=== PATIENT | female | born 1935 ===

== ENCOUNTER 2018-03-26 13:47 | Emergency (ER) | payer MEDICARE, MEDICAID ==
[2018-03-26 15:34] VITALS: BP 126/60
--- NOTE | 2018-03-26 15:56 | ED ---
GI/ HPI - HPI Summary HPI Summary: 82 yr old female with the complaint of dysuria, frequency, suprapubic discomfort. Onset of symptoms several days ago. She has UTI frequently. She denies fever, chills, vomiting, nausea. She didn't get a chance to eat much today, and she is a diabetic. She also has a history of parkinsons. She is feeling a little weak and shaky from not eating enough this afternoon. Juice and crackers provided and she is feeling better now. - History of Current Complaint Chief Complaint: [facility] Time Seen by Provider: 03/26/18 15:28 Stated Complaint: URINARY Hx Last Menstrual Period: n/a Pain Intensity: 7 - Allergy/Home Medications Allergies/Adverse Reactions: Allergies Allergy/AdvReac Type Severity Reaction Status Date / Time Sulfa (Sulfonamide Allergy Hives Verified 03/26/18 15:20 Antibiotics) PMH/Surg Hx/FS Hx/Imm Hx Endocrine/Hematology History: Reports: Hx Diabetes Cardiovascular History: Reports: Hx Hypertension Denies: Hx Pacemaker/ICD Respiratory History: Denies: Hx Asthma, Hx Chronic Obstructive Pulmonary Disease (COPD) GI History: Reports: Other GI Disorders - nervous stomach Musculoskeletal History: Reports: Hx Back Problems Sensory History: Reports: Hx Contacts or Glasses, Hx Hearing Problem Denies: Hx Hearing Aid Opthamlomology History: Reports: Hx Contacts or Glasses Neurological History: Reports: Other Neuro Impairments/Disorders - Parkinson's. PAIN CLINIC PT. 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 dx by William Garcia Denies: History Other Infectious Disease, Traveled Outside the [place] in Last 30 Days - Family History Known Family History: Positive: None, Other - Pt is unable to remember parents past medical history - Social History Alcohol Use: None Substance Use Type: Reports: None Smoking Status (MU): Never Smoked Tobacco Review of Systems Constitutional: Negative Positive: Sore Throat Positive: Cough All Other Systems Reviewed And Are Negative: Yes Physical Exam Triage Information Reviewed: Yes Vital Signs On Initial Exam: Initial Vitals Temp Pulse Resp BP Pulse Ox 97.7 F 75 16 126/60 95 03/26/18 15:26 03/26/18 15:26 03/26/18 15:26 03/26/18 15:26 03/26/18 15:26 Vital Signs Reviewed: Yes Appearance: Positive: Well-Appearing, No Pain Distress Skin: Positive: Warm, Skin Color Reflects Adequate Perfusion Head/Face: Positive: Normal Head/Face Inspection Eyes: Positive: EOMI ENT: Positive: Pharynx normal Neck: Positive: Nontender Respiratory/Lung Sounds: Positive: Clear to Auscultation, Breath Sounds Present Cardiovascular: Positive: RRR. Negative: Murmur Abdomen Description: Positive: Nontender Musculoskeletal: Positive: Strength/ROM Intact Neurological: Positive: Sensory/Motor Intact, Alert, Oriented to Person Place, Time, CN Intact II-III Psychiatric: Positive: Normal - [place] Coma Scale Best Eye Response: 4 - Spontaneous Best Motor Response: 6 - Obeys Commands Best Verbal Response: 5 - Oriented Coma Scale Total: 15 Diagnostics - Vital Signs Vital Signs Temp Pulse Resp BP Pulse Ox 03/26/18 15:26 97.7 F 75 16 126/60 95 - Laboratory Lab Statement: Any lab studies that have been ordered have been reviewed, and results considered in the medical decision making process. [facility] Course/Dx - Diagnoses Provider Diagnoses: UTI (urinary tract infection) Discharge - Sign-Out/Discharge Documenting (check all that apply): Patient Departure All imaging exams completed and their final reports reviewed: No Studies - Discharge Plan Condition: Good Disposition: HOME Prescriptions: Cefdinir [Cefdinir 300 MG CAP] 300 mg PO BID #20 cap Patient Education Materials: Urinary Tract Infection in Women (ED) Referrals: Sylvester Nichols MD [Primary Care Provider] - 2 Days - Billing Disposition and Condition Condition: GOOD Disposition: Home
--- NOTE | 2018-03-29 07:24 | ED ---
Progress - Progress Note Progress Note: Urine culture report today consistent with Escherichia coli sensitive to nitrofurantoin. She is currently on Cefdinir for which sensitivity report is not available. She is allergic to sulfa antibiotics Please call the patient with the results. If she is no better, she can switch the antibiotic to nitrofurantoin. And follow up with PMD. I have prescribed it to the pharmacy. Course/Dx - Diagnoses Provider Diagnoses: UTI (urinary tract infection) Discharge - Sign-Out/Discharge Documenting (check all that apply): Post-Discharge Follow Up All imaging exams completed and their final reports reviewed: No Studies - Discharge Plan Condition: Good Disposition: HOME Prescriptions: Cefdinir [Cefdinir 300 MG CAP] 300 mg PO BID #20 cap Patient Education Materials: Urinary Tract Infection in Women (ED) Referrals: Sylvester Nichols MD [Primary Care Provider] - 2 Days - Billing Disposition and Condition Condition: GOOD Disposition: Home
== END 2018-03-26 16:17 | disposition home or self-care (01) ==
LOC: UCCORT 13:47
DX: N39.0 Urinary tract infection, site not specified (principal); B96.20 Unspecified Escherichia coli [E. coli] as the cause of diseases classified elsewhere; Z16.11 Resistance to penicillins; Z16.23 Resistance to quinolones and fluoroquinolones; Z16.20 Resistance to unspecified antibiotic; E11.9 Type 2 diabetes mellitus without complications; G20 Parkinson's disease; Z88.2 Allergy status to sulfonamides; I10 Essential (primary) hypertension
CPT/HCPCS: 81003; 87077; 87086; 87186; 99212; G0463